=== PATIENT | male | born 1985 | race Caucasian/White ===

== ENCOUNTER 2022-08-23 22:16 | Emergency (ER) | payer OTHER, SELFPAY ==
[2022-08-23] VITALS (13 sets, daily range): BP systolic 132–177; BP diastolic 74–110; PULSE 80–98; RESP 16–20; TEMP 36.8; O2SAT 96–99; BMI 48.7
[2022-08-23] MEDS: 0.9 % SODIUM CHLORIDE 1000 ml 1,000 ML IV (22:30)
[2022-08-23] MEDS: KETOROLAC 30 MG/ML inj IVP (22:30)
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
[2022-08-23 22:46] LABS: Basophils Absolute Auto 0.03 K/uL (0.00-0.30); Basophils Percent Auto 0.3 % (0.0-3.0); Eosinophils Percent Auto 1.1 % (0.0-7.0); Hematocrit 47.5 % (37.0-53.0); Hemoglobin* 15.6 gm/dL (13.5-17.5); Immature Granulocytes Abs Auto 0.06 K/uL (0.00-0.30); Immature Granulocytes Pct Auto 0.7 %; Lymphocytes Absolute Auto 2.56 K/uL (0.90-2.90); Lymphocytes Percent Auto 28.2 % (20-44); Mean Corpuscular HGB Conc 33 gm/dL (32-36); Mean Corpuscular Hemoglobin 29 pg (26-34); Mean Corpuscular Volume 87 fL (80-100); Monocytes Percent Auto 6.6 % (0.0-11.0); Neutrophils Absolute Auto 5.72 K/uL (1.7-7.0); Neutrophils Percent Auto 63.1 % (42.0-72.0); Platelet Count* 276 K/uL (140-440); RDW Coefficient of Variation % 12.9 % (11.5-15.5); Red Blood Count 5.45 m/uL (4.30-5.90); White Blood Count* 9.07 K/uL (4.50-11.00)
[2022-08-23 22:48] LABS: Slide Review Reflex No
[2022-08-23 22:51] LABS: Albumin* 4.2 g/dL (3.3-5.0); Chloride* 105 mmol/L (96-114); Potassium* 4.1 mmol/L (3.6-5.1); Sodium* 139 mmol/L (135-149)
[2022-08-23 22:53] LABS: Bilirubin Direct* 0.2 mg/dL (0.0-0.5); Bilirubin Total* 0.5 mg/dL (0.1-1.5); Carbon Dioxide* 27 mmol/L (20-32); Creatinine* 1.1 mg/dL (0.5-1.5); Est. Creatinine Clearance* 90.16; Estimated Glomerular Filt Rate 88 ml/min; Total Protein* 7.1 g/dL (6.0-8.3)
[2022-08-23 22:54] LABS: Alanine Aminotransferase* 45 U/L (4-50); Alkaline Phosphatase* 57 U/L (40-150); Aspartate Amino Transferase* 34 U/L (12-35); Blood Urea Nitrogen* 15 mg/dL (5-24); Calcium* 8.8 mg/dL (8.4-10.6); Glucose* 136 mg/dL (60-115); Lipase* 56 U/L (23-300)
[2022-08-23 23:06] LABS: Troponin I* < 0.01 ng/mL (0.01-0.04)
[2022-08-23 23:39] LABS: Appearance Urine Clear (Clear); Bilirubin Urine Negative (Negative); Blood Urine Negative (Negative); Color Urine Yellow (Yellow); Glucose Urine Negative (Negative); Ketones Urine Negative (Negative); Leukocyte Esterase Urine Negative (Negative); Nitrite Urine Negative (Negative); Protein Urine Negative (Negative); Specific Gravity Urine 1.015 (1.000-1.030)
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
[2022-08-23 23:52] LABS: RBC Urine 0-2 (0-2); Squamous Epithelial Cell Urine Few (None-Few); WBC Urine 0-2 (0-5)
[2022-08-24] VITALS: BP 132/74; PULSE 88; RESP 18; O2SAT 98
[2022-08-24 00:28] VITALS: BP 135/78; PULSE 81; RESP 18; TEMP 36.8
[2022-08-24 00:28] LABS: Troponin, Point-of-Care* 0.01 ng/ml (0.01-0.04)
== END 2022-08-24 00:41 | disposition home or self-care (01) ==
PROVIDERS: Emergency Provider Family Medicine
DX: S99.921A Unspecified injury of right foot, initial encounter (principal); T14.8XXA Other injury of unspecified body region, initial encounter; V43.52XA Car driver injured in collision with other type car in traffic accident, initial encounter; Y92.411 Interstate highway as the place of occurrence of the external cause
CPT/HCPCS: 36415; 70450; 71260; 72125; 73610; 73630; 74177; 80048; 80076; 81001; 83690; 84484; 85025; 93005; 94761; 96361; 96374; 99284; 99285; 99291; J1885; J7030; Q9967

== ENCOUNTER 2022-09-01 06:10 | Day surgery (SDC) | payer OTHER, SELFPAY ==
[2022-09-01] VITALS (8 sets, daily range): BP systolic 116–144; BP diastolic 75–103; PULSE 58–82; RESP 16; TEMP 36.2–36.7; O2SAT 91–96; BMI 51.5
[2022-09-01] MEDS: LACTATED RINGERS 1000 ML 1,000 ML 100 ML IV (06:50)
[2022-09-01] MEDS: SODIUM CHLORIDE 0.9 % (FLUSH) 10 ML SYRINGE IVF (06:50)
--- NOTE | 2022-09-01 06:51 | CRLHL7_ITS ---
For Patients: As a result of the Cures Act, medical imaging exams and procedure reports are released immediately into your electronic medical record. You may view this report before your referring provider. If you have questions, please contact your health care provider. Indication: Intra-op C-arm for Lis Franc Repair Right Foot Technique: Four fluoroscopic images of the right midfoot. Fluoroscopic time 37.6 seconds. IMPRESSION: Fluoroscopic guidance for Lisfranc fracture repair. Dictated by Coleman Hawthorne MD @ 09/01/2022 10:24:12 AM (Electronically Signed)
--- NOTE | 2022-09-01 07:22 | SUR.PREOP ---
Patient provided home covid negative results to RN.
--- NOTE | 2022-09-01 07:22 | SUR.PREOP ---
TIME?OUT:?0725 PT/RN/MDA?VERIFICATION?OF?SURGICAL?SITE,?PROCEDURE,?AND?CONSENT OBTAINED?PRIOR?TO?INVASIVE?PROCEDURE.
[2022-09-01] MEDS: BUPIVACAINE 0.5% 30 ML INJECTION (07:55)
--- NOTE | 2022-09-01 08:30 | W.ANESCHARGE ---
Anesthesia Charges Start Date/Time Anesthesia Start Date: 09/01/22 Anesthesia Start Time: 07:38 Stop Date/Time Anesthesia Stop Date: 09/01/22 Anesthesia Stop Time: 09:10
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
--- NOTE | 2022-09-01 09:16 | W.PM.NB ---
Nerve Block Nerve Block Time Seen by Provider: 07:15 Date Seen: 09/01/22 Type of block requested by surgeon for post-operative analgesia: adductor canal Side: right Time out performed: Yes Verification of patient name: Yes Verification of date of : Yes Site marking: site marked Name of person performing procedure: Bebo Thapa Continuous monitoring Was continuous monitoring of O2 sat, B/P, groundwater monitoring technician, recorded every 15 minutes?: Yes Procedure Checklist: sterile prep, needles and gloves Ultrasound guided. Images saved: Yes Medications given in 5ml increments after negative aspiration: Ropivicaine %: 0.5 mL: 15 Needle gauge: 20 Decadron (mg): 10 Precedex (mcg): 25 Patient tolerated procedure well: Yes Additional comments: injected in 5ml increments after negative aspiration Block Charges Block Charge (with Pro Fee): Femoral Nerve Use of Ultrasound Machine for Block: Yes- US Guidance/pain block
--- NOTE | 2022-09-01 09:18 | W.PM.NB ---
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 Images saved: Yes Medications given in 5ml increments after negative aspiration: Ropivicaine %: 0.5 mL: 15 Needle gauge: 20 Patient tolerated procedure well: Yes Block Charges Block Charge (with Pro Fee): Sciatic Nerve Use of Ultrasound Machine for Block: Yes- US Guidance/pain block
[2022-09-01] MEDS: ACETAMINOPHEN 500 MG TABLET 1000 MG PO (09:32)
== END 2022-09-01 10:26 | disposition home or self-care (01) ==
PROVIDERS: PCP Student in an Organized Health Care Education/Training Program; Visit Provider Podiatrist
PROC: (CPT 28615; principal; 2022-09-01 07:30)
DX: S93.321A Subluxation of tarsometatarsal joint of right foot, initial encounter (principal)
CPT/HCPCS: 28615; 01480; 64445; 64447; 73620; 76000; 76942; A9270; C1713; J1100; J2704; J2795; J3490; J7120

== ENCOUNTER 2023-04-05 13:50 | Outpatient (CLI) | payer OTHER, SELFPAY | END 2023-04-05 13:51 | disposition home or self-care (01) | PROVIDERS: PCP Student in an Organized Health Care Education/Training Program; Visit Provider Registered Nurse | DX: R19.7 Diarrhea, unspecified (principal); E66.01 Morbid (severe) obesity due to excess calories; M10.9 Gout, unspecified | CPT/HCPCS: 87015; 87207; 87493; 87505 ==

== ENCOUNTER 2024-01-04 13:02 | Outpatient (CLI) | payer OTHER, SELFPAY | END 2024-01-04 13:03 | disposition home or self-care (01) | LOC: AMB 01-05 19:35 | PROVIDERS: Visit Provider Family Medicine | DX: S29.9XXA Unspecified injury of thorax, initial encounter (principal); V89.2XXA Person injured in unspecified motor-vehicle accident, traffic, initial encounter; Y92.488 Other paved roadways as the place of occurrence of the external cause | CPT/HCPCS: A0425; A0427 ==

== ENCOUNTER 2024-01-04 13:28 | Emergency (ER) | payer OTHER, SELFPAY ==
[2024-01-04] VITALS (9 sets, daily range): BP systolic 117–171; BP diastolic 70–121; PULSE 79–90; RESP 12–20; TEMP 36.6; O2SAT 95–96; BMI 54.6
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
--- NOTE | 2024-01-04 13:38 | CRLHL7_ITS ---
For Patients: As a result of the Cures Act, medical imaging exams and procedure reports are released immediately into your electronic medical record. You may view this report before your referring provider. If you have questions, please contact your health care provider. INDICATION: Fall. TECHNIQUE: CT of the cervical spine without contrast. COMPARISON: None. FINDINGS: Vertebral alignment: Straightening of the cervical lordosis without subluxation. Vertebrae: Motion limits evaluation for subtle nondisplaced fracture. No acute fracture is identified. Vertebral body heights and intervertebral disc spaces are maintained. No appreciable degenerative changes. Extraspinal findings: Prevertebral and posterior paraspinal soft tissues are unremarkable. Posterior fossa is unremarkable. IMPRESSION: No acute traumatic abnormality identified in the cervical spine. Please note that all CT scans at this facility use dose modulation, iterative reconstruction, and/or weight-based dosing when appropriate to reduce radiation dose to as low as reasonably achievable. Dictated by Swati Lizama MD @ 01/04/2024 2:25:30 PM (Electronically Signed)
--- NOTE | 2024-01-04 13:38 | CRLHL7_ITS ---
For Patients: As a result of the Century Cures Act, medical imaging exams and procedure reports are released immediately into your electronic medical record. You may view this report before your referring provider. If you have questions, please contact your health care provider. Indication: Fall. Technique: Noncontrast CT of head was performed. Comparison: None available. Findings: Brain parenchyma: Normal martinez-white matter differentiation. No acute intraparenchymal hemorrhage. No mass effect or midline shift. Extra-axial spaces: No extra-axial collection. Ventricular system: Unremarkable for age. Paranasal sinuses and mastoid air cells: Clear. Orbits: Unremarkable. Bones: No calvarial fracture. 1.1 cm faintly calcified soft tissue lesion in the left parietal scalp. Impression: 1. No acute intracranial abnormality identified. 2. Partially calcified left parietal scalp lesion. Recommend correlation with clinical exam. Please note that all CT scans at this facility use dose modulation, iterative reconstruction, and/or weight-based dosing when appropriate to reduce radiation dose to as low as reasonably achievable. Dictated by Swati Lizama MD @ 01/04/2024 2:22:23 PM (Electronically Signed)
--- NOTE | 2024-01-04 13:38 | CRLHL7_ITS ---
For Patients: As a result of the Cures Act, medical imaging exams and procedure reports are released immediately into your electronic medical record. You may view this report before your referring provider. If you have questions, please contact your health care provider. INDICATION: Fall. TECHNIQUE: CT of the thoracic spine without contrast. COMPARISON: None. FINDINGS: Vertebral alignment: Alignment is anatomic, without subluxation. Vertebrae: Vertebral body heights are maintained. No acute fracture. No suspicious osseous lesion. Extraspinal findings: Prevertebral soft tissues, visualized airway, and visualized lungs are unremarkable given limitations of respiratory motion. IMPRESSION: No acute traumatic abnormality identified in the thoracic spine Please note that all CT scans at this facility use dose modulation, iterative reconstruction, and/or weight-based dosing when appropriate to reduce radiation dose to as low as reasonably achievable. Dictated by Swati Lizama MD @ 01/04/2024 2:28:25 PM (Electronically Signed)
[2024-01-04] MEDS: dexAMETHasone 10 MG/ML inj IVP (14:45)
[2024-01-04] MEDS: KETOROLAC 15 MG/ML inj IVP (14:46)
== END 2024-01-04 15:05 | disposition home or self-care (01) ==
PROVIDERS: Emergency Provider Family Medicine
DX: S06.0X0A Concussion without loss of consciousness, initial encounter (principal); S29.019A Strain of muscle and tendon of unspecified wall of thorax, initial encounter; S00.01XA Abrasion of scalp, initial encounter; W18.30XA Fall on same level, unspecified, initial encounter
CPT/HCPCS: 70450; 72125; 72128; 96374; 96375; 99284; 99285; 99291; G0390; J1100; J1885

== ENCOUNTER 2024-06-08 02:21 | Emergency (ER) | payer OTHER, SELFPAY ==
[2024-06-08 02:37] VITALS: BP 157/118; PULSE 83; RESP 16; TEMP 36.4; O2SAT 97; BMI 56.1
--- NOTE | 2024-06-08 02:52 | ED_ITS ---
HPI - Abdominal Pain General Date Seen: 06/08/24 Chief Complaint: Abdominal Pain Stated Complaint: hernia Time Seen by Provider: 06/08/24 02:33 Source: patient, family and old records reviewed Mode of arrival: ambulatory Limitations: no limitations History of Present Illness HPI narrative: Patient is a 39-year-old gentleman who presents here with umbilical hernia pain, he has a known umbilical hernia, approximately 2:00 p.m. he coughed, and says his umbilical hernia came out he has been unable to put it back in and it is hard and painful. He has noted no nausea no vomiting he is eating and drinking otherwise normally. He is just getting over strep throat, which causes him to cough. He presents here with his significant other. Related Data Home Medications ?Medication ?Instructions ?Recorded ?Confirmed allopurinol 300 mg tablet 300 mg PO DAILY 12/27/23 06/08/24 lisinopril 10 mg tablet 10 mg PO DAILY 12/27/23 06/08/24 allopurinol 100 mg tablet mg PO 06/08/24 cephalexin 500 mg capsule 500 mg PO BID 06/08/24 06/08/24 nystatin 100,000 unit/mL oral 5 ml PO QID 06/08/24 06/08/24 suspension Allergies Allergy/AdvReac Type Severity Reaction Status Date / Time adhesive Allergy Rash Verified 01/04/24 13:40 Review of Systems Status of ROS Reports: 10 or more systems reviewed and unremarkable except as noted in History and below [facility] Medical History Morbid obesity ?E66.01 - Morbid (severe) obesity due to excess calories (ICD-10) Gout ?M10.9 - Gout, unspecified (ICD-10) No significant past medical history Surgical History No significant past surgical history Social History Smoking Status: Never smoker Do you use any of these nicotine containing products: None Second hand tobacco smoke exposure: No How often do you have a drink containing alcohol: never How often do you have six or more drinks on one occasion: Never AUDIT-C Alcohol total score: 0 Non-prescribed substance use: denies use Caffeine: Yes Exam Narrative: Exam Narrative: On examination he has morbid obesity, his abdomen shows a swelling just on the left side of his umbilical opening. No other masses are noted no other tenderness is noted, bowel sounds are normal. With gentle pressure over approximately a 5 minute. I was able to reduce his hernia. He felt immediate relief. I suspect that it was just a little fat containing hernia, possibly with a little bit of omentum. We will watch him for approximately 20 minutes after him ensure he is doing well Const: Vital Signs, click to edit/add: Vital Signs - 24 hr 06/08/24 02:37 06/08/24 03:00 Temperature 97.6 F Pulse Rate [Pulse Oximeter] 83 77 Respiratory Rate 16 16 Blood Pressure [Ri ght Upper Arm] 157/118 H 146/101 H Pulse Oximetry 97 95 Oxygen Delivery Me thod Room Air Room Air Documenting provider has reviewed patient's vital signs: yes Course Reevaluation(s) Time of Reevaluation #1: 03:35 Reevaluation #1: I had the patient get up and walk around, he was not fine with no pain at all. Vital Signs Vital signs: Initial Vital Signs Temperature 97.6 F 06/08/24 02:37 Temperature Source Temporal Artery Scan 06/08/24 02:37 Pulse Rate 83 06/08/24 02:37 Respiratory Rate 16 06/08/24 02:37 Blood Pressure 157/118 H 06/08/24 02:37 Blood Pressure Mean 131 H 06/08/24 02:37 Blood Pressure Position Sitting 06/08/24 02:37 Pulse Oximetry 97 06/08/24 02:37 Oxygen Delivery Method Room Air 06/08/24 02:37 Vital Signs Temperature 97.6 F 06/08/24 02:37 Pulse Rate 83 06/08/24 02:37 Respiratory Rate 16 06/08/24 02:37 Blood Pressure 157/118 H 06/08/24 02:37 Pulse Oximetry 97 06/08/24 02:37 Oxygen Delivery Method Room Air 06/08/24 02:37 Temperature 97.6 F 06/08/24 02:37 Pulse Rate 77 06/08/24 03:00 Respiratory Rate 16 06/08/24 03:00 Blood Pressure 146/101 H 06/08/24 03:00 Pulse Oximetry 95 06/08/24 03:00 Oxygen Delivery Method Room Air 06/08/24 03:00 Medications Administered Medications: Generic Name Dose Route Start Last Admin Trade Name Regino PRN Reason Stop Dose Admin Acetaminophen 1,000 mg 06/08/24 02:53 06/08/24 02:58 Acetaminophen 500 Mg Tablet PO 06/08/24 02:54 1,000 mg ONCE ONE Administration Discharge Plan Discharge Clinical Impression: Incarcerated umbilical hernia Patient Disposition: Home w/ Parent or Adult Condition: Improved Instructions: Laparoscopic Herniorrhaphy (DC), Umbilical Hernia Repair (DC) Additional Instructions: 11 go home he will re-presented if he has further issues associated with this, or if he has abdominal pain with nausea vomiting otherwise he will follow-up with general surgery as a do recommend that he get this fixed. Prescriptions: No Action allopurinol 300 mg tablet 300 mg PO DAILY lisinopril 10 mg tablet 10 mg PO DAILY allopurinol 100 mg tablet PO cephalexin 500 mg capsule 500 mg PO BID nystatin 100,000 unit/mL suspension 5 ml PO QID Follow Up/Referrals: Allison Moe MD [Staff Physician] - Kylah Blue MD [Staff Physician] - Alexa Castillo MD [Staff Physician] - Provider,Not a Local [Primary Care Provider] - Stand Alone Forms: [employer] Info Instructions
[2024-06-08] MEDS: ACETAMINOPHEN 500 MG TABLET 1000 MG PO (02:58)
[2024-06-08 03:00] VITALS: BP 146/101; PULSE 77; RESP 16; O2SAT 95
--- OUTSIDE RECORDS SUMMARY | 2024-06-08 03:06 | XMS_ITS | Clinical Summary ---
Author Organization [employer] Address [address] [place] [id number] Care Team Providers Care Cat Scanner Operator Name Role Phone Self-Referral, Patient Primary Care Provider Source Comments You are receiving this document as you are listed as the primary care provider,follow-up provider, or the patient has been referred to you for consultation.This is in compliance with the Medicare and[facility] Incentive [facility],which states Providers who transition their patient to another setting of careor provider of care or refers their patient to another provider of care shouldprovide summary care record for each transition of care or referral. [facility] Allergies Active Allergy Reactions Criticality Noted Date Comments Adhesive Rash Low 08/28/2022 Medications Medication Sig Dispensed Refills Start Date End Date Status diclofenac (CATAFLAM) 50 MG tablet Take 20 mg by mouth two times a day. 20mg 2x a day Active Social History Tobacco Use Types Packs/Day Years Used Date Smoking Tobacco: Never Assessed Sex and Gender Information Value Date Recorded Sex Assigned at Not on file Gender Identity Not on file Sexual Orientation Not on file Last Filed Vital Signs Vital Sign Reading Time Taken Comments Blood Pressure - - Pulse - - Temperature 36.2 ??C (97.1 ??F) 08/28/2022 2:08 PM CS T Respiratory Rate - - Oxygen Saturation - - Inhaled Oxygen Concentration - - Weight 163.3 kg (360 lb) 08/28/2022 2:08 PM COLOR CORRECTOR Height 175.3 cm (5' 9) 08/28/2022 2:08 PM COLOR CORRECTOR Body Mass Index 53.16 08/28/2022 2:08 PM COLOR CORRECTOR Plan of Treatment Health Maintenance Due Date Last Done Comments Hep C Screening (Preventive Services) 1983 HIV Screening (Preventive Services) 1999 Adult Preventive Visit 2001 HepB (1) 2002 Cholesterol 2018 COVID-19 Vaccine (2 - 2023-2 5 season) 2024 04/21/2022 Influenza (#1) 2024 05/16/2021 DTaP/Tdap/Td (2 - Tdap) 09/05/2028 09/05/2018 Zoster/Shingles (1 of 2) 2033 HPV Vaccine Aged Out No longer eligi ble based on patient's age to complete this topic HepA Aged Out No longer eligi ble based on patient's age to complete this topic Hib Aged Out No longer eligi ble based on patient's age to complete this topic IPV (Polio) Aged Out No longer eligi ble based on patient's age to complete this topic Infant RSV Aged Out No longer eligi ble based on patient's age to complete this topic MCV4 Aged Out No longer eligi ble based on patient's age to complete this topic Pneumococcal Aged Out No longer eligi ble based on patient's age to complete this topic Care Teams Cat Scanner Operator Relationship Specialty Start Date End Date Self-Referral, Patient, [place] [address] PCP - General 08/28/22
--- OUTSIDE RECORDS SUMMARY | 2024-06-08 03:06 | XMS_ITS | Clinical Summary ---
Author Organization [facility] Address [place], [place] [address] Care Team Providers Care Foundry Superintendant Name Role Phone Rivka Roque DO Primary Care Provider [phone] Allergies Active Allergy Reactions Criticality Noted Date Comments Adhesive Tape-Silicones Rash 05/15/2017 Adhesive patches Medications Medication Sig Dispensed Refills Start Date End Date Status allopurinoL (ZYLOPRIM) 100 mg tabletIndications:G out, unspecified cause, unspecified chronicity, unspecified site take 100mg by mouth once daily for 2 weeks; then increase to 200mg for 2 weeks; then increase to 300mg 45 Tablet 11/09/2023 Active allopurinoL (ZYLOPRIM) 300 mg tabletIndications:G out, unspecified cause, unspecified chronicity, unspecified site Take 1 Tablet (300 mg) by mouth once daily. 90 Tablet 3 11/09/2023 Active lisinopriL (PRINIVIL; ZESTRIL) 10 mg tabletIndications:H TN (hypertension) TAKE 1 TABLET(10 MG) BY MOUTH DAILY 90 Tablet 2 11/11/2023 Active clotrimazole (MYCELEX JOSE A) 10 mg trocheIndications:T hrush Dissolve 1 Tablet (10 mg) in the mouth 5 times daily for 14 days. 70 Tablet 06/05/2024 06/19/2024 Active cephalexin 500 mg capsuleIndications: upper respiratory infection Take 1 Capsule (500 mg) by mouth two times daily for 10 days. 20 Capsule 06/05/2024 06/15/2024 Active amoxicillin-clavula melissa (AUGMENTIN) 875-125 mg tabletIndications:S inusitis, unspecified chronicity, unspecified location Take 1 Tablet by mouth two times daily with meals for 5 days. 10 Tablet 05/06/2024 05/11/2024 nystatin (MYCOSTATIN) 100,000 unit/mL suspensionIndicatio ns:Thrush Swish and swallow 5 mL (500,000 units) by mouth four times daily for 7 days. 140 mL 05/20/2024 05/27/2024 Active Problems Problem Noted Date Diagnosed Date Primary hypertension 11/09/2023 Gout Morbid obesity with BMI of 40.0-44.9, adult Resolved Problems Problem Noted Date Diagnosed Date Resolved Date Acute streptococcal pharyngitis 05/22/2019 11/09/2023 Encounters Date Type Department Care Team Description 06/05/2024 2:30 PM PLATE CLEANER Office Visit [facility] [address] [place] [address] Brooklyn Richardson PA Throat Problem 06/05/2024 Travel 05/20/2024 Telephone [facility] [address] [place] [address] Joanne Roque, DO NEED A THRUSH MEDICATION 05/06/2024 1:40 PM CDT Office Visit [facility] [address] [place] [address] Joanne Roque, DO Throat Pain/problem (X3 weeks - would like to have a strep test or thinks it is a sinus infection ) 05/06/2024 Travel from Last 3 Months Immunizations Name Administration Dates Next Due COVID-19 vaccine ([employer] 30mcg/0.3mL) 12YO+ DANNY-SUCROSE PF, MDV 04/21/2022 Influenza, IIV4 05/16/2021 Tdap 09/05/2018 Typhoid (injectable) 04/28/2022 Yellow Fever 04/28/2022 Social History Tobacco Use Types Packs/Day Years Used Date Smoking Tobacco: Never Passive Smoke Exposure: Never Smokeless Tobacco: Never Tobacco Cessation:Counseling Given: Yes Alcohol Use Standard Drinks/Week Comments No 0 (1 standard drink = 0.6 oz pur e alcohol) PHQ-2 Answer Date Recorded PHQ-2 TOTAL SCORE 0 11/09/2023 Social Connections Answer Date Recorded Do you often feel lonely or isolated from those around you? 0 11/09/2023 Financial Resource Strain Answer Date R ecorded Difficulty of Paying Living Expenses 3 11/09/2023 Difficulty of Paying Living Expenses Not on file 11/09/2023 Food Insecurity Answer Date Recorded Do you worry your food will run out before you are able to buy more? 1 11/09/2023 Transportation Needs Answer Date Record ed Does lack of transportation keep you from medica l appointments? 1 11/09/2023 Does lack of transportation keep you from work, meetings or getting things that you need? 1 11/09/2023 Housing Stability Answer Date Recorded What is your housing situation today? 1 11/09/2023 Sex and Gender Information Value Date Recorded Sex Assigned at Not on file Gender Identity Not on file Sexual Orientation Not on file Obstetrics History Last Filed Vital Signs Vital Sign Reading Time Taken Comments Blood Pressure 134/92 06/05/2024 2:29 PM PLATE CLEANER Pulse 80 06/05/2024 2:29 PM PLATE CLEANER Temperature 36.8 ??C (98.3 ??F) 06/05/2024 2:29 PM CS T Respiratory Rate 16 05/22/2019 2:13 PM CDT Oxygen Saturation 94% 06/05/2024 2:29 PM PLATE CLEANER Inhaled Oxygen Concentration - - Weight 171.4 kg (377 lb 12.8 oz) 06/05/2024 2:29 PM PLATE CLEANER Height 177 cm (5' 9.69) 11/09/2023 2:48 PM CDT Body Mass Index 54.69 11/09/2023 2:48 PM CDT Plan of Treatment Health Maintenance Due Date Last Done Comments COVID-19 vaccine series () 03/23/2024 04/21/2022 Influenza for age 9-49 03/23/2024 05/16/2021 BMI (ht and wt on same day) for age 18+ 11/08/2024 11/09/2023, 06/19/2022, 05/22/2019, Additional history exists Depression screening for age 12+ 11/10/2024 11/11/2023, 11/09/2023, 04/25/2019, Additional history exists Tetanus booster 09/05/2028 09/05/2018 Lipids for age 35-44 11/08/2028 11/09/2023 Tdap Completed 09/05/2018 HIV for age 15-65 Completed 11/09/2023 Hepatitis C screening for age 18-79 Completed 11/09/2023 Pneumococcal series for age 6-64 Aged Out No longer eligible based on patient's age to complete this topic Procedures Procedure Name Priority Date/Time Associated Diagnosis Comments COVID/FLU/RSV PANEL Routine 06/05/2024 2:41 PM PLATE CLEANER Sore throat THROAT RAPID STREP ONLY CLINIC Routine 06/05/2024 2:32 PM PLATE CLEANER Sore throat THROAT RAPID STREP ONLY CLINIC Routine 05/06/2024 1:50 PM CDT Sore throat ANTI HIV 1/2 Routine 11/09/2023 3:30 PM CDT Screening for HIV (human immunodeficiency virus) ANTI HCV Routine 11/09/2023 3:30 PM CDT Need for hepatitis C screening test LIPID PANEL W REFLEX MEASURED LDL Routine 11/09/2023 3:30 PM CDT Screening for lipid disorders from Last 3 Months or Most Recently Relevant to Health Maintenance Results * COVID/FLU/RSV PANEL (06/05/2024 2:41 PM PLATE CLEANER) [facility] Negative Negative 06/05/2024 11:31 PM PLATE CLEANER [facility] Comment:All PCR tests are reed bject to false negative result due to variability in viral load and collection technique. A negative result does not rule out a SARS-CoV-2 infection. Clinical correlation required. INFLUENZA A PCR Negative 4 11:31 PM PLATE CLEANER [facility] INFLUENZA B PCR Negative 4 11:31 PM PLATE CLEANER [facility] Respiratory Syncytial Virus Negative 06/05/2024 11:31 PM PLATE CLEANER [facility] Swab NASOPHARYNGEAL SWAB / Unknown Non-Blood / Unknown 06/05/2024 2:41 PM PLATE CLEANER 06/05/2024 2:41 PM PLATE CLEANER [place] [facility] [address] [place] [address], * (ABNORMAL) THROAT RAPID STREP ONLY CLINIC (06/05/2024 2:32 PM PLATE CLEANER) Only the most recent of2 resultswithin the time period is included. [facility] POC, GROUP A STREP DETECTED( A) NOT DETECTED [facility] Comment: The [place] [employer] recommends that a throat culture be performed if a rapid group A streptococcus assay yields a negative result. [employer] recommends Streptococcus, Group A culture. Throat SPECIMEN FROM THROAT / Unknown 06/05/2024 2:32 PM PLATE CLEANER 06/05/2024 2:33 PM PLATE CLEANER [place] [facility] [employer] Performing Organization Address [facility]/ZIP Co de Phone Number [facility] [address] [place] [address], [facility] [address] [place] [address] * (ABNORMAL) LIPID PANEL W REFLEX MEASURED LDL [[id number]] (11/09/2023 3:30 PM CDT) [facility] CHOLESTEROL,TOTAL 138 100 - 199 mg/dL 11/09/2023 9:34 PM CDT [facility] Comment: Cholesterol, Total Reference Ranges Desirable <200 mg/dL Borderline 200-239 mg/dL High >=240 mg/dL TRIGLYCERIDES 100 <150 mg/dL 11/09/2023 9:34 PM CDT [facility] HDL CHOLESTEROL 39(L) >40 mg/dL 9:34 PM CDT [facility] NON-HDL CHOLESTEROL 99 <145 mg/dl 11/09/2023 9:34 PM CDT [facility] CHOL/HDL RATIO 3.54 <4.50 11/09/2023 9:34 PM CDT [facility] LDL CHOLESTEROL 79 <=130 mg/dL 11/09/2023 9:34 PM CDT [facility] VLDL CHOLESTEROL 20 <=30 mg/dL 11/09/2023 9:34 PM CDT [facility] PROVIDER ORDERED STATUS RANDOM 11/09/2023 9:34 PM CDT [facility] Blood BLOOD SPECIMEN / Unknown Venipuncture / Unknown 11/09/2023 3:30 PM CDT 11/09/2023 3:30 PM CDT Joanne Roque DO CHEMISTRY Performing Organization Address [facility] Co de Phone Number [facility] [address] [place] [id number], [place] * ANTI HCV (11/09/2023 3:30 PM CDT) Pathologist [facility] HEPATITIS C ANTIBODY Non-Reacti ve Non-React miky 11/09/2023 8:45 PM CDT [facility] Comment:Please note, per www .CDC.gov: If a patient is known to be at high risk of HCV infection, or is symptomatic, and the physician's suspicion of HCV infection is high, HCV RNA testing is often employed and is of diagnostic value, even after an initial negative anti-HCV test result. Blood BLOOD SPECIMEN / Unknown Venipuncture / Unknown 11/09/2023 3:30 PM CDT 11/09/2023 3:30 PM CDT Joanne Roque DO SEND OUTS Performing Organization Address City/[facility]/ZIP Co de Phone Number [facility] [address] [place] [id number], [place] * ANTI HIV 1/2 [[id number]] (11/09/2023 3:30 PM CDT) HIV-1/HIV-2 SCREEN Non-Reacti ve Non-Reacti ve 11/09/2023 9:21 PM CDT [facility] Comment:HIV-1 p24 and HIV-1/ HIV-2 Ab Not Detected. Blood BLOOD SPECIMEN / Unknown Venipuncture / Unknown 11/09/2023 3:30 PM CDT 11/09/2023 3:30 PM CDT Joanne Roque DO SEND OUTS [facility] [address] [place] [address], from Last 3 Months or Most Recently Relevant to Health Maintenance Care Teams Foundry Superintendant Relationship Specialty Start Date End Date Rivka Roque DO [facility] [place] [address] PCP - General Family Practice 10/16/23
== END 2024-06-08 03:40 | disposition home or self-care (01) ==
PROVIDERS: Emergency Provider Family Medicine
DX: K42.0 Umbilical hernia with obstruction, without gangrene (principal)
CPT/HCPCS: 99284; A9270